=== PATIENT | female | born 1960 | race Asian ===

== ENCOUNTER 2017-03-22 00:13 | Emergency (ER) | payer BC ==
[~2017-03-22] VITALS: Ht 162.6 cm; Wt 120.2 kg
[2017-03-22 00:24] VITALS: TEMP 98.5
[2017-03-22] MEDS ORDERED: combivent INH (00:41)
[2017-03-22] MEDS ORDERED: ALBUTEROL0.083 % IN (00:42)
[2017-03-22] MEDS ORDERED: MONT10TA PO (00:42)
[2017-03-22 00:46] LABS: PLATELET COUNT 317 K/uL (152-353)
[2017-03-22 00:59] LABS: POTASSIUM 3.5 mmol/L (3.6-5.2); SODIUM 135 mmol/L (136-145)
[2017-03-22 01:25] VITALS: BP 159/77
== END 2017-03-22 01:26 | disposition home or self-care (01) ==
LOC: ED 00:13
DX: J45.901 Unspecified asthma with (acute) exacerbation (principal); R06.09 Other forms of dyspnea
CPT/HCPCS: 36415; 80053; 83880; 85027; 94664; 94760; 96374; 99284; J2930

== ENCOUNTER 2017-06-22 21:12 | Emergency (ER) | payer BC ==
[~2017-06-22] VITALS: Ht 162.6 cm; Wt 142.4 kg
[~2017-06-22 21:12] MED LIST: ALBUTEROL0.083 % IN; MONT10TA PO; combivent INH
[2017-06-22 21:34] VITALS: BP 155/89; TEMP 98.3
== END 2017-06-22 23:16 | disposition home or self-care (01) ==
LOC: ED 21:12
DX: R20.8 Other disturbances of skin sensation (principal); T65.891A Toxic effect of other specified substances, accidental (unintentional), initial encounter
CPT/HCPCS: 99283

== ENCOUNTER 2018-05-31 10:06 | Outpatient (CLI) | payer OTHER ==
[2018-05-31 11:18] LABS: PLATELET COUNT 317 K/uL (152-353)
== END 2018-05-31 19:49 | disposition home or self-care (01) ==
LOC: LABW 10:06
PROVIDERS: Internal Medicine
DX: R25.2 Cramp and spasm (principal)
CPT/HCPCS: 36415; 80053; 81000; 83540; 83735; 84443; 85027

== ENCOUNTER 2019-12-30 09:12 | Outpatient (CLI) | payer OTHER | END 2019-12-30 22:28 | disposition home or self-care (01) | LOC: RESP 09:12 | DX: R06.02 Shortness of breath (principal) ==

== ENCOUNTER 2020-01-05 09:41 | Outpatient (CLI) | payer OTHER ==
[2020-01-05 10:24] LABS: PLATELET COUNT 315 K/uL (152-353)
== END 2020-01-05 20:27 | disposition home or self-care (01) ==
LOC: LABW 09:41
PROVIDERS: Internal Medicine Sleep Medicine
DX: J45.909 Unspecified asthma, uncomplicated (principal)
CPT/HCPCS: 36415; 82785; 85027; 86003

== ENCOUNTER 2020-08-18 08:58 | Outpatient (CLI) | payer OTHER | END 2020-08-18 23:01 | disposition home or self-care (01) | LOC: LABW 08:58 | PROVIDERS: ATTEND Physician Assistant | DX: R74.8 Abnormal levels of other serum enzymes (principal); Z68.43 Body mass index [BMI] 50.0-59.9, adult; M79.10 Myalgia, unspecified site; J45.40 Moderate persistent asthma, uncomplicated; M25.50 Pain in unspecified joint; Z13.29 Encounter for screening for other suspected endocrine disorder | CPT/HCPCS: 36415; 80074; 82085; 82103; 83036; 83615; 85652; 86140 ==

== ENCOUNTER 2020-10-12 10:29 | Emergency (ER) | payer OTHER ==
[~2020-10-12] VITALS: Ht 162.6 cm; Wt 156.9 kg
[2020-10-12 10:36] VITALS: TEMP 98.1
[2020-10-12 11:06] LABS: PLATELET COUNT 278 K/uL (152-353)
[2020-10-12 11:13] LABS: POTASSIUM 4.4 mmol/L (3.6-5.2); SODIUM 138 mmol/L (136-145)
[2020-10-12 11:16] LABS: PARTIAL THROMBOPLASTIN TIME 27.3 SECONDS (24.5-33.6)
[2020-10-12] MEDS ORDERED: ALBU90AE13 INH (11:50)
[2020-10-12] MEDS ORDERED: SPIRIVA RE1.25 MCG/A INH (11:50)
[2020-10-12] MEDS ORDERED: BREO ELLIPTA 201 INH INH (11:51)
[2020-10-12] MEDS ORDERED: DUPIXENT200 MG/1.1 SC (11:52)
[2020-10-12 12:00] VITALS: BP 162/71
== END 2020-10-12 12:01 | disposition home or self-care (01) ==
LOC: ED 10:29
PROVIDERS: Hospitalist
DX: R60.0 Localized edema (principal)
CPT/HCPCS: 36415; 80053; 82550; 83880; 84484; 85027; 85379; 85610; 85730; 93005; 96374; 99284; J1940

== ENCOUNTER 2020-12-10 11:42 | Outpatient (CLI) | payer OTHER ==
[~2020-12-10 11:42] MED LIST changes: +ALBU90AE13 INH; +BREO ELLIPTA 201 INH INH; +DUPIXENT200 MG/1.1 SC; +SPIRIVA RE1.25 MCG/A INH
== END 2020-12-10 19:06 | disposition home or self-care (01) ==
LOC: US 11:42
PROVIDERS: ATTEND Internal Medicine
DX: M79.89 Other specified soft tissue disorders (principal); N28.1 Cyst of kidney, acquired

== ENCOUNTER 2020-12-16 10:52 | Outpatient (CLI) | payer OTHER ==
[2020-12-16 11:27] LABS: POTASSIUM 4.4 mmol/L (3.6-5.2)
== END 2020-12-16 19:31 | disposition home or self-care (01) ==
LOC: LABW 10:52
PROVIDERS: ATTEND Nurse Practitioner Adult Health
DX: R35.89 Other polyuria (principal); Z79.899 Other long term (current) drug therapy
CPT/HCPCS: 36415; 80048

== ENCOUNTER 2021-07-21 11:54 | Outpatient (CLI) | payer OTHER | END 2021-07-21 19:03 | disposition home or self-care (01) | LOC: RAD 11:54 | PROVIDERS: ATTEND Internal Medicine | DX: M17.11 Unilateral primary osteoarthritis, right knee (principal) ==

== ENCOUNTER 2021-10-10 03:42 | Emergency (ER) | payer OTHER ==
[~2021-10-10] VITALS: Ht 162.6 cm; Wt 142.9 kg
[2021-10-10 04:15] VITALS: BP 161/85; TEMP 97.6
== END 2021-10-10 04:15 | disposition home or self-care (01) ==
LOC: ED 03:42
DX: I83.892 Varicose veins of left lower extremity with other complications (principal)
CPT/HCPCS: 99281

== ENCOUNTER 2022-07-11 11:49 | Outpatient (CLI) | payer OTHER | END 2022-07-11 19:25 | disposition home or self-care (01) | LOC: RAD 11:49 | PROVIDERS: ATTEND Internal Medicine | DX: M25.572 Pain in left ankle and joints of left foot (principal) ==